=== PATIENT | female | born 1980 | race Two or more races ===

== ENCOUNTER 2021-05-16 00:25 | Emergency (ER) | payer MEDICAID ==
[2021-05-16] MEDS ORDERED: LORAZEPAM 1MG TABLET PO ONE (02:00)
[2021-05-16 02:33] VITALS: BP 115/79
== END 2021-05-16 02:34 | disposition home or self-care (01) ==
LOC: ER 00:25
DX: F41.9 Anxiety disorder, unspecified (principal); F15.10 Other stimulant abuse, uncomplicated
CPT/HCPCS: 93005; 99283

== ENCOUNTER 2021-06-06 15:10 | Emergency (ER) | payer MEDICAID ==
[~2021-06-06] VITALS: Ht 162.6 cm; Wt 114.0 kg
[2021-06-06] MEDS ORDERED: T3 PO (17:25)
[2021-06-06] MEDS ORDERED: NEOM10DR11 EACH EAR (17:26)
[2021-06-06] MEDS ORDERED: ACETAMINOPHEN WITH CODEINE 300/30MG TABLET PO ONE (17:30)
[2021-06-06 17:52] VITALS: BP 140/74
== END 2021-06-06 17:34 | disposition home or self-care (01) ==
LOC: ER 15:10
DX: H60.92 Unspecified otitis externa, left ear (principal); R03.0 Elevated blood-pressure reading, without diagnosis of hypertension; F15.90 Other stimulant use, unspecified, uncomplicated
CPT/HCPCS: 99282; 99283

== ENCOUNTER 2021-06-07 09:52 | Emergency (ER) | payer MEDICAID ==
[~2021-06-07] VITALS: Ht 160 cm; Wt 91.0 kg
[~2021-06-07 09:52] MED LIST: NEOM10DR11 EACH EAR; T3 PO
[2021-06-07] MEDS ORDERED: KETOROLAC 30MG/ML VIAL IM NR (10:23)
[2021-06-07] MEDS ORDERED: ACETAMINOPHEN WITH CODEINE 300/30MG TABLET PO NR (10:23)
[2021-06-07] MEDS ORDERED: LIDOCAINE HCL 1% 20ML VIAL (Pyxis) INJ INFIL NR (10:30)
[2021-06-07] MEDS ORDERED: CEFTRIAXONE SODIUM 1 G/VIAL IM NR (10:30)
[2021-06-07 11:32] VITALS: BP 127/98
== END 2021-06-07 11:33 | disposition home or self-care (01) ==
LOC: ER 09:59
DX: H60.92 Unspecified otitis externa, left ear (principal); F15.10 Other stimulant abuse, uncomplicated; F41.9 Anxiety disorder, unspecified
CPT/HCPCS: 96372; 99284; J0696; J1885; J3490

== ENCOUNTER 2021-06-10 11:57 | Emergency (ER) | payer MEDICAID ==
[~2021-06-10] VITALS: Ht 167.6 cm; Wt 114.0 kg
[2021-06-10 11:59] VITALS: BP 168/75
[2021-06-10] MEDS ORDERED: NAPR-1176 MT (12:34)
[2021-06-10] MEDS ORDERED: CIPHCO EACH EAR (12:34)
[2021-06-10] MEDS ORDERED: ACET-2708 MT (12:34)
[2021-06-10] MEDS ORDERED: ACETAMINOPHEN 325MG TABLET PO ONE (12:45)
[2021-06-10] MEDS ORDERED: IBUPROFEN 400MG TABLET PO ONE (12:45)
== END 2021-06-10 12:53 | disposition home or self-care (01) ==
LOC: ER 11:57
DX: H60.93 Unspecified otitis externa, bilateral (principal); F41.9 Anxiety disorder, unspecified; F15.10 Other stimulant abuse, uncomplicated
CPT/HCPCS: 99283

== ENCOUNTER 2021-07-01 01:34 | Emergency (ER) | payer MEDICAID ==
[~2021-07-01] VITALS: Ht 167.6 cm; Wt 91.0 kg
[~2021-07-01 01:34] MED LIST changes: +ACET-2708 MT; +CIPHCO EACH EAR; +NAPR-1176 MT
[2021-07-01] MEDS ORDERED: LORAZEPAM 0.5MG TABLET PO ONE (02:00)
[2021-07-01 03:26] VITALS: BP 134/76
== END 2021-07-01 03:34 | disposition home or self-care (01) ==
LOC: ER 01:34
DX: F41.9 Anxiety disorder, unspecified (principal); F15.10 Other stimulant abuse, uncomplicated
CPT/HCPCS: 71045; 81025; 93005; 99283

== ENCOUNTER 2021-07-07 06:24 | Emergency (ER) | payer MEDICAID ==
[~2021-07-07] VITALS: Ht 165.1 cm; Wt 113.4 kg
[2021-07-07] MEDS ORDERED: ACETAMINOPHEN WITH CODEINE 300/30MG TABLET PO ONE (08:15)
[2021-07-07] MEDS ORDERED: TOPUD PO (08:48)
[2021-07-07 09:00] VITALS: BP 141/88
== END 2021-07-07 09:00 | disposition home or self-care (01) ==
LOC: ER 06:24
DX: R51.9 Headache, unspecified (principal); F15.10 Other stimulant abuse, uncomplicated; Z79.899 Other long term (current) drug therapy
CPT/HCPCS: 70486; 81025; 99284